=== PATIENT | male | born 1990 | race Two or more races ===

== ENCOUNTER 2020-06-03 14:15 | Observation (INO) | payer SELFPAY ==
[~2020-06-03] VITALS: Ht 182.9 cm; Wt 147.4 kg
--- NOTE | 2020-06-03 14:18 | NUR ---
ashley from home to er bed 15, per ems report, binge drinking x 5 days and unable to take care of self. 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 placed on monitor. awaiting md higuera.
--- NOTE | 2020-06-03 14:35 | NUR ---
dr doherty at bedside for eval.
[2020-06-03] MEDS ORDERED: IV NS 0.9% 1,000 ML BAG IV ONE (15:00)
--- NOTE | 2020-06-03 15:05 | NUR ---
iv line started blood drawn and sent to lab.
[2020-06-03 15:13] LABS: BASOPHILS % (AUTO) 0.7 % (0.0-2.0); EOSINOPHILS % (AUTO) 0.1 % (0.0-6.0); HEMATOCRIT 58 % (39-51); LYMPHOCYTES # (AUTO) 1.9 /CMM (0.8-4.8); LYMPHOCYTES % (AUTO) 27.9 % (20.0-44.0); MEAN CORPUSCULAR HGB CONC 34 g/dl (31.0-36.0); MEAN CORPUSCULAR VOLUME 89 fL (80-96); MONOCYTES # (AUTO) 0.6 /CMM (0.1-1.30); MONOCYTES % (AUTO) 8.9 % (2.0-12.0); NEUTROPHILS # (AUTO) 4.3 /CMM (1.8-8.9); NEUTROPHILS % (AUTO) 62.4 % (43.0-81.0); PLATELET COUNT (AUTO) 247 /CMM (150-450); RED BLOOD CELL COUNT(AUTO) 6.52 MIL/uL (4.5-6.0); WHITE BLOOD COUNT (AUTO) 6.9 K/uL (4.3-11.0)
[2020-06-03 15:15] LABS: HEMOGLOBIN 19.8 g/dL (13.5-17.5)
[2020-06-03 15:20] LABS: CALCIUM, SERUM 8.4 mg/dL (8.5-10.1); CARBON DIOXIDE 28 mmol/L (21-32); CHLORIDE 101 mmol/L (98-107); CREATININE 1.3 mg/dL (0.6-1.3); GLUCOSE 131 mg/dL (74-106); POTASSIUM 3.6 mmol/L (3.5-5.1); SODIUM SERUM 141 mmol/L (136-145); UREA NITROGEN, BLOOD 14 mg/dL (7-18)
[2020-06-03 15:28] LABS: ALANINE AMINOTRANSFERASE 527 U/L (12-78); ALBUMIN 4.4 g/dL (3.4-5.0); ALCOHOL, BLOOD 373 mg/dL (0-0); ALKALINE PHOSPHATASE 90 U/L (46-116); ASPARTATE AMINOTRANSFERASE 273 U/L (15-37); BILIRUBIN,DIRECT 0.2 mg/dL (0.0-0.2); BILIRUBIN,TOTAL 0.6 mg/dL (0.2-1.0); TOTAL PROTEIN, SERUM 7.7 g/dL (6.4-8.2)
[2020-06-03 15:54] LABS: ACETAMINOPHEN < 2 ug/ml (10-30); SALICYLATE < 2.8 mg/dL (2.8-20.0)
[2020-06-03 17:30] LABS: LYMPHOCYTES % (MANUAL) 26 % (16-48); MONOCYTES % (MANUAL) 6 % (0-11.0); NEUTROPHILS % (MANUAL) 68 (42-76)
[2020-06-03] MEDS ORDERED: ONDANSETRON HCL/PF - ER 4 MG/2 ML VIAL IV ONE (17:30)
[2020-06-03] MEDS ORDERED: ONDANSETRON HCL/PF 4 MG/2 ML VIAL ONE (17:45)
[2020-06-03] MEDS: LORAZEPAM INJ 2 MG/ML VIAL IV PRN (18:29)
--- NOTE | 2020-06-03 18:29 | NUR ---
pt is belligerent, walking around. order for ativan 2mg ivp carried out. see emar.
[2020-06-03] MEDS ORDERED: IV NS 0.9% 1,000 ML IV ONE (18:30)
[2020-06-03] MEDS ORDERED: FOLIC ACID 1 MG TABLET PO ONE (18:30)
[2020-06-03] MEDS ORDERED: hydrALAZINE HCL IV 20 MG VIAL IV PRN (18:30)
[2020-06-03] MEDS ORDERED: MULTIVITAMINS,THERAGRAN 1 UDTAB TABLET PO SCH (18:30)
[2020-06-03] MEDS ORDERED: ONDANSETRON HCL/PF 4 MG/2 ML VIAL IVP PRN (18:30)
[2020-06-03] MEDS ORDERED: THIAMINE HCL 100 MG TABLET PO ONE (18:30)
--- NOTE | 2020-06-03 19:05 | NUR ---
ASSUMED CARE ON THIS PT
--- NOTE | 2020-06-03 20:13 | NUR ---
PT WANDERING AROUND THE ER. PT REORIENTED TO ROOM. PT PROVIDED W/ FOOD.
--- NOTE | 2020-06-03 22:15 | NUR ---
PT WALKING AROUND AND KEEPS ASKING TO HAVE BP CHECKED. ASSISTED PT BACK TO BED. PLACE PT ON BP AND POX. WILL CONTINUE TO MONITOR PT CLOSELY. PT AAOX4 NO ACUTE DISTRESS NOTED, RESP EVEN AND UNLABORED. CALL LIGHT WITHIN REACH.
[2020-06-03] MEDS ORDERED: THIAMINE HCL 100 MG TABLET ONE (23:04)
[2020-06-03] MEDS ORDERED: MULTIVITAMINS,THERAGRAN 1 UDTAB TABLET ONE (23:04)
[2020-06-03] MEDS ORDERED: FOLIC ACID 1 MG TABLET ONE (23:04)
--- NOTE | 2020-06-03 23:06 | NUR ---
PT CONSTANTLY WANDERING. PT ASSISTED BACK TO BED W/ SITTER FOR SAFETY. PT AAOX4, NO ACUTE DISTRESS NOTED, RESP EVEN AND UNLABORED. PT CONSTANLY WANTS HIS BP CHECKED.
[2020-06-04] MEDS ORDERED: LORAZEPAM INJ 2 MG/ML VIAL ONE ×2 (00:12→07:47)
[2020-06-04] MEDS: LORAZEPAM INJ 2 MG/ML VIAL IV PRN ×2 (00:17→07:51)
--- NOTE | 2020-06-04 00:31 | NUR ---
DR. SALVADOR MADE AWARE ON HYDRALAZING UNAVAILABLE AND PT BP 166/110. ORDERS RECEIVED TO GIVEN CLONIDINE 0.1MG PO Q6H PRN FOR SBP>150. WILL MEDICATE PT ACCORDINGLY.
[2020-06-04] MEDS ORDERED: CLONIDINE HCL 0.1 MG TABLET ONE ×2 (00:33→07:46)
--- NOTE | 2020-06-04 00:37 | NUR ---
PT REORIENTED TO HIS ROOM. PT CONSTANTLY WANDERING. PT ASSISTED TO BED W/ SITTER FOR SAFETY
[2020-06-04] MEDS: CLONIDINE HCL 0.1 MG TABLET PO PRN ×2 (00:39→07:52)
--- NOTE | 2020-06-04 05:04 | NUR ---
MARKING STITCHER AT BEDSIDE FOR BLOOD DRAW
--- NOTE | 2020-06-04 07:13 | NUR ---
RENEE PALAFOX AT BEDSIDE TO RE-EVAL PT.
--- NOTE | 2020-06-04 07:30 | NUR ---
REPORT GIVEN TO SAUMYA JHAVERI FOR SRINIVASA
[2020-06-04] MEDS ORDERED: IV NS 0.9% 500 ML BAG IV ONE (08:00)
--- NOTE | 2020-06-04 08:21 | NUR ---
Arely MONEY MANAGER called for eval/alcohol rehab resources
[2020-06-04] MEDS ORDERED: THIA100T70 PO (08:32)
[2020-06-04] MEDS ORDERED: LORA-259 PO (08:32)
[2020-06-04] MEDS ORDERED: CALC-101 PO (08:32)
[2020-06-04] MEDS ORDERED: ONDA4TAB5 PO (08:32)
[2020-06-04] MEDS ORDERED: LISI-607 PO (08:32)
[2020-06-04] MEDS ORDERED: MULT-754 PO (08:32)
--- NOTE | 2020-06-04 09:02 | NUR ---
PER DEEPTHI MORE, PATIENT PROVIDED W RESOURCES. CAN BE DISCHARGED ONCE CLEARED
--- NOTE | 2020-06-04 09:10 | NUR ---
Patient a/ox4, breathing even and unlabored, ambulatory with steady gait. Patient discharged to home in stable condition. Written and verbal after care instructions given by Gold REYES. Patient verbalizes understanding of instruction. IV removed. Catheter intact and site benign. Pressure and 4x4 applied to site. No bleeding noted. Called friend [employer] for pickup eta less than an hour. Patient will be discharged to waiting room.
[2020-06-04 09:38] VITALS: BP 155/90
--- NOTE | 2020-06-04 09:57 | NUR ---
Social Service consult requested by Gold Smith NP to provide [facility] resources. PAtient is a 30-year-old male. Patient presented to [facility] ER for alcohol intoxication. Patient reports living with 5 friends in a home on [address]. Patient reported to this [facility] as his emergency contact but stated that he could not remember her number, however, it was in his cell phone with this belongings. Patient reports working for a [employer] company receiving approximally $500-600 a month. Patient denies drug and cigarette use. Susy does not report a mental health diagnosis. Patient denies audio hallucination. PAtient reports visual hallucinations "when eyes are closed. Different things. No harm ever." Patient reports drinking 2 bottles of Vodka for the past 5 days. Patient currently feeling "bad". Patient was provided with [facility] resources for mental health and alcohol/rehab. Substance Abuse resources provided included: [facility] Substance Abuse Self-Helpline ([facility]) ; [facility] [id number] [facility]. [place] [id number] ; [facility] [address] [facility] [address] ; [facility] [address] [facility] [id number] ; [facility] [address] [facility] [id number] ; [facility] [address] [facility] [phone] ; [facility] [address] [facility] [address] ; [facility] Substance Abuse Helpline([facility] ; [facility] ; [facility] [place]; [facility]; [facility] [place]; [facility] Yoselin; [facility]; [facility], [facility]. Dani Caldera; Alcoholics Anonymous -[facility]; [facility] ; Marijuana Anonymous [facility]; Narcotics Anonymous www.na.org. Mental Health resources provided: [facility] [address] [place] [address] ; [facility], [facility] [address] [address] [facility] [address], [place] [address] ; [facility]ule[facility] Rogers [facility] [address] [place] [address] ; [facility] [place] [address]
== END 2020-06-04 18:00 | disposition home or self-care (01) ==
LOC: ER 18:28 → OBSER 22:34 → INTOOBSV 22:34 → UNDODISIN 06-04 09:10
PROVIDERS: ADMIT Nurse Practitioner Acute Care; ATTEND Nurse Practitioner Acute Care
DX: F10.239 Alcohol dependence with withdrawal, unspecified (principal); Z68.41 Body mass index [BMI] 40.0-44.9, adult; R74.0 Nonspecific elevation of levels of transaminase and lactic acid dehydrogenase [LDH]; I10 Essential (primary) hypertension; E66.01 Morbid (severe) obesity due to excess calories; Y90.8 Blood alcohol level of 240 mg/100 ml or more
CPT/HCPCS: 36415; 80048-TC; 80076-TC; 83735-TC; 85025-TC; G0378; G0480; J0360; J2060; J2405; J7030

== ENCOUNTER 2021-05-27 14:09 | Emergency (ER) | payer SELFPAY ==
[~2021-05-27] VITALS: Ht 172.7 cm; Wt 158.8 kg
[~2021-05-27 14:09] MED LIST: CALC-101 PO; LISI-768 PO; LORA-259 PO; MULT-754 PO; ONDA4TAB5 PO; THIA100T70 PO
--- NOTE | 2021-05-27 14:25 | NUR ---
The patient is bib ra brent cortezot, feeling anxnious after drinking alcohol. Alert and oriented x2. Denies pain. In room air and denies SOB. Respiration regular and unlabored. Will continue to monitor the patient.
[2021-05-27 16:52] LABS: BASOPHILS # (AUTO) 0.1 K/uL (0.0-0.2); BASOPHILS % (AUTO) 0.8 % (0.0-2.0); EOSINOPHILS % (AUTO) 0.1 % (0.0-6.0); HEMATOCRIT 58 % (39-51); LYMPHOCYTES # (AUTO) 2.9 K/uL (0.8-4.8); MEAN CORPUSCULAR HGB CONC 33 g/dl (31.0-36.0); MEAN CORPUSCULAR VOLUME 87 fL (80-96); MONOCYTES % (AUTO) 9.8 % (2.0-12.0); NEUTROPHILS % (AUTO) 60.3 % (43.0-81.0); PLATELET COUNT (AUTO) 245 K/uL (150-450); RED BLOOD CELL COUNT(AUTO) 6.66 MIL/uL (4.5-6.0); WHITE BLOOD COUNT (AUTO) 9.9 K/uL (4.3-11.0)
[2021-05-27] MEDS ORDERED: ONDANSETRON HCL/PF 4 MG/2 ML VIAL ONE (16:52)
[2021-05-27 16:53] LABS: HEMOGLOBIN 19.3 g/dL (13.5-17.5)
[2021-05-27] MEDS ORDERED: LORAZEPAM INJ 2 MG/ML VIAL ONE ×2 (16:53→18:31)
[2021-05-27 17:07] LABS: CALCIUM, SERUM 8.6 mg/dL (8.5-10.1); CREATININE 1.3 mg/dL (0.6-1.3); POTASSIUM 3.5 mmol/L (3.5-5.1)
[2021-05-27] MEDS: LORAZEPAM INJ 2 MG/ML VIAL IV ONE ×2 (17:10→18:36)
[2021-05-27] MEDS: ONDANSETRON HCL/PF 4 MG/2 ML VIAL IVP ONE (17:10)
[2021-05-27] MEDS: IV NS 0.9% 1,000 ML BAG IV ONE (17:11)
--- NOTE | 2021-05-27 18:02 | NUR ---
THE PATIENT HAVING DINNER. TOLERATES PROVIDED FOOD WELL. PO FLUIDS ENCOUARGED.
[2021-05-27 18:22] LABS: LYMPHOCYTES % (MANUAL) 19 % (16-48); MONOCYTES % (MANUAL) 8 % (0-11.0); NEUTROPHILS % (MANUAL) 73 (42-76)
[2021-05-27] MEDS ORDERED: CHLO25CA22 PO (20:51)
--- NOTE | 2021-05-27 21:00 | NUR ---
Patient discharged to home in stable condition. Rx and Written and verbal after care instructions given. Patient verbalizes understanding of instruction.
[2021-05-27 21:30] VITALS: BP 124/71
== END 2021-05-27 21:31 | disposition home or self-care (01) ==
LOC: ER 14:12
DX: F10.239 Alcohol dependence with withdrawal, unspecified (principal); I10 Essential (primary) hypertension; R00.2 Palpitations; Y90.9 Presence of alcohol in blood, level not specified; Z79.899 Other long term (current) drug therapy
CPT/HCPCS: 36415; 80048; 84484; 85007; 85025; 93005; 96361; 96374; 96375; 96376; 99284; J2060 ×2; J2405; J7030